=== PATIENT | female | born 1980 | race Caucasian/White ===

== ENCOUNTER 2019-03-16 08:23 | Outpatient (CLI) | payer BC, OTHER | END 2019-03-16 08:24 | disposition home or self-care (01) | LOC: LAB.WCP 08:23 | PROVIDERS: ATTEND Family Medicine | DX: R53.83 Other fatigue (principal) | CPT/HCPCS: 36415; 84443 ==

== ENCOUNTER 2020-09-07 07:10 | Day surgery (SDC) | payer OTHER ==
[2020-09-07] MEDS ORDERED: LACTATED RINGERS 1,000 ML IV ONE ×2 (07:35→09:40)
[2020-09-07 07:38] LABS: HCG UR QUAL NEGATIVE
[2020-09-07] MEDS ORDERED: fentaNYL 250 MCG/5 ML VIAL IVP ONE (09:06)
[2020-09-07] MEDS ORDERED: MIDAZOLAM 2 MG/2 ML VIAL IVP ONE (09:06)
[2020-09-07 10:07] VITALS: BP 116/76
== END 2020-09-07 07:11 | disposition home or self-care (01) ==
LOC: SDS 07:10
PROVIDERS: ATTEND Surgery
DX: Z12.11 Encounter for screening for malignant neoplasm of colon (principal); K57.30 Diverticulosis of large intestine without perforation or abscess without bleeding; Z83.71 Family history of colonic polyps; I10 Essential (primary) hypertension; K21.9 Gastro-esophageal reflux disease without esophagitis
CPT/HCPCS: 45378; 81025; J7120

== ENCOUNTER 2020-09-14 07:00 | Outpatient (CLI) | payer OTHER | END 2020-09-14 23:59 | disposition home or self-care (01) | LOC: LAB.R 07:00 | PROVIDERS: ATTEND Family Medicine | DX: R20.0 Anesthesia of skin (principal); Z20.828 Contact with and (suspected) exposure to other viral communicable diseases | CPT/HCPCS: 36415; 80053; 82607; 84443; 84703; 85025; 87086 ==

== ENCOUNTER 2020-09-14 09:18 | Outpatient (CLI) | payer OTHER ==
[2020-09-14 13:18] LABS: BASOPHILS # (AUTO) 0.1 10^3/uL (0.0-0.1); BASOPHILS % (AUTO) 1.1 %; EOSINOPHILS # (AUTO) 0.1 10^3/uL (0.0-0.7); EOSINOPHILS % (AUTO) 1.1 %; HGB - HEMOGLOBIN 14.1 g/dL (12.0-16.0); LYMPHOCYTES # (AUTO) 2.4 10^3/uL (1.5-3.5); LYMPHOCYTES % (AUTO) 28.2 %; MEAN CORPUSCULAR HEMOGLOBIN 30.9 pg (27.0-31.0); MEAN CORPUSCULAR HGB CONC 33.8 g/dL (32.0-36.0); MEAN CORPUSCULAR VOLUME 91.2 fL (81.0-99.0); MEAN PLATELET VOLUME 9.8 fL (7.9-10.8); MONOCYTES # (AUTO) 0.6 10^3/uL (0.0-1.0); NEUTROPHILS # (AUTO) 5.2 10^3/uL (1.5-6.6); NEUTROPHILS % (AUTO) 62.1 %; PLT - PLATELET COUNT 322 10^3/uL (130-450); RED BLOOD COUNT 4.57 10^6/uL (4.20-5.40); RED CELL DISTRIBUTION WIDTH 12.5 % (12.0-15.0); WHITE BLOOD COUNT 8.4 x10^3/uL (4.8-10.8)
[2020-09-14 13:54] LABS: ALBUMIN 4.4 g/dL (3.2-5.5); ALBUMIN/GLOBULIN RATIO 1.3 (1.0-2.2); BILIRUBIN,TOTAL 0.5 mg/dL (0.2-1.0); CALCIUM 9.6 mg/dL (8.5-10.3); CREATININE 0.6 mg/dL (0.4-1.0); TOTAL PROTEIN 7.7 g/dL (6.7-8.2)
[2020-09-14 14:52] LABS: HCG,QUALITATIVE BLOOD NEGATIVE
== END 2020-09-14 09:19 | disposition home or self-care (01) ==
LOC: LAB.WCP 09:18
PROVIDERS: ATTEND Family Medicine
DX: R20.0 Anesthesia of skin (principal); Z20.828 Contact with and (suspected) exposure to other viral communicable diseases
CPT/HCPCS: 36415; 80053; 82607; 84443; 84703; 85025

== ENCOUNTER 2020-09-21 07:18 | Outpatient (CLI) | payer OTHER ==
[2020-09-21] MEDS ORDERED: GADOBUTROL 10 MMOL/10 ML VIAL ONE (08:18)
[2020-09-21] MEDS ORDERED: GADOBUTROL 10 MMOL/10 ML VIAL IVP ONE (08:25)
--- NOTE | 2020-09-21 09:34 | MRI Report ---
PROCEDURE: Brain W/WO INDICATIONS: NUMBNESS OF FACE CONTRAST: IV CONTRAST: Gadavist ml: 9 TECHNIQUE: Noncontrast axial T1 spin echo, axial T2 fast spin echo, sagittal and axial FLAIR, coronal T2 fast sp in echo, axial gradient echo, axial diffusion and ADC through the brain. After the administration of contrast, axial and coronal T1 spin echo with fat saturation through the brain. COMPARISON: None. FINDINGS: Image quality: Excellent. CSF spaces: Basal cisterns are patent. No extra-axial fluid collections. Ventricles are normal in size and shape. Brain: An approximately 1 cm mass in the periventricular right frontal lobe demonstrates heterogeneou s T1/T2 signal intensity, peripheral susceptibility artifact consistent with hemosiderin deposition, and stippled internal enhancement. There are two small adjacent developmental venous anomalies. No as sociated mass effect or midline shift. No adjacent vasogenic edema. No restricted diffusion to indica te recent ischemia. The major intracranial vascular flow related signal voids are maintained. No abno rmal enhancement otherwise. Skull and face: Calvarial marrow is normal in signal. Orbits appear normal. Sinuses: Sinuses and mastoids appear clear. 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 These findings are of doubtful clinical significance al though theoretically could account for the patient's symptoms. Reviewed by: Jeremiah Duran MD on 09/21/2020 9:33 AM PST Approved by: Jeremiah Duran MD on 09/21/2020 9:33 AM PST Station ID: [id number]
== END 2020-09-21 07:19 | disposition home or self-care (01) ==
LOC: DI 07:18
PROVIDERS: ATTEND Family Medicine
DX: R20.0 Anesthesia of skin (principal)
CPT/HCPCS: 70553; A9585

== ENCOUNTER 2020-10-25 07:58 | Outpatient (CLI) | payer OTHER ==
[2020-10-25 09:24] LABS: BASOPHILS # (AUTO) 0.1 10^3/uL (0.0-0.1); BASOPHILS % (AUTO) 1.3 %; EOSINOPHILS # (AUTO) 0.1 10^3/uL (0.0-0.7); EOSINOPHILS % (AUTO) 1.3 %; HGB - HEMOGLOBIN 14.2 g/dL (12.0-16.0); LYMPHOCYTES # (AUTO) 2.3 10^3/uL (1.5-3.5); LYMPHOCYTES % (AUTO) 31.2 %; MEAN CORPUSCULAR HGB CONC 33.2 g/dL (32.0-36.0); MEAN CORPUSCULAR VOLUME 93.4 fL (81.0-99.0); MEAN PLATELET VOLUME 9.8 fL (7.9-10.8); MONOCYTES # (AUTO) 0.6 10^3/uL (0.0-1.0); MONOCYTES % (AUTO) 7.6 %; NEUTROPHILS # (AUTO) 4.4 10^3/uL (1.5-6.6); NEUTROPHILS % (AUTO) 58.3 %; PLT - PLATELET COUNT 315 10^3/uL (130-450); RED BLOOD COUNT 4.58 10^6/uL (4.20-5.40); RED CELL DISTRIBUTION WIDTH 12.6 % (12.0-15.0); WHITE BLOOD COUNT 7.5 x10^3/uL (4.8-10.8)
[2020-10-25 09:49] LABS: ALBUMIN 4.6 g/dL (3.2-5.5); ALBUMIN/GLOBULIN RATIO 1.4 (1.0-2.2); ALKALINE PHOSPHATASE 52 IU/L (42-121); ALT ALANINE AMINOTRANSFERASE 34 IU/L (10-60); AST ASPARTATE AMINOTRANSFERASE 26 IU/L (10-42); BILIRUBIN,TOTAL 0.7 mg/dL (0.2-1.0); BUN - BLOOD UREA NITROGEN 14 mg/dL (6-20); CALCIUM 9.6 mg/dL (8.5-10.3); CARBON DIOXIDE - CO2 21 mmol/L (21-32); CHLORIDE 101 mmol/L (101-111); CHOL/HDL RATIO 3.4 (<4.4); CHOLESTEROL 177 mg/dL; CREATININE 0.6 mg/dL (0.4-1.0); GLUCOSE 123 mg/dL (70-100); HDL CHOLESTEROL 52 mg/dL; LDL CHOLESTEROL,CALCULATED 87 mg/dL; LDL/HDL RATIO 1.7 (<4.4); SODIUM 134 mmol/L (135-145); TOTAL PROTEIN 7.8 g/dL (6.7-8.2); VLDL CHOLESTEROL 38 mg/dL
[2020-10-28 14:17] LABS: ANA SCREEN NEGATIVE (NEGATIVE)
[2020-10-29 09:02] LABS: ALPHA-TOCOPHEROL 13.2 mg/L; BETA-GAMMA-TOCOPHEROL 1.3 mg/L (<4.4)
== END 2020-10-25 07:59 | disposition home or self-care (01) ==
LOC: LAB 07:58
PROVIDERS: ATTEND Internal Medicine
DX: Z00.00 Encounter for general adult medical examination without abnormal findings (principal); G62.9 Polyneuropathy, unspecified
CPT/HCPCS: 36415; 80053; 80061; 81599; 82525; 82595; 82607; 83721; 84155; 84165; 84207; 84443; 84446; 85025; 86038; 86334; 86592

== ENCOUNTER 2023-02-26 11:07 | Outpatient (CLI) | payer BC ==
--- NOTE | 2023-02-27 08:50 | Mammography Report ---
BILATERAL DIGITAL SCREENING MAMMOGRAM 3D/2D: 02/26/2023 CLINICAL: Family history of breast cancer. High risk screening. Baseline exam. Routine screening. No prior exams were available for comparison. Both breasts are heterogeneously dense, which may obscure small masses (category c / 51-75% glandular tissue). No significant masses, calcifications, or other findings are seen in either breast. IMPRESSION: NEGATIVE There is no mammographic evidence of malignancy. A 1 year screening mammogram is recommended. Based on the Tyrer Cuzick model (a risk assessment model) the patients lifetime risk is 19.1% and he r 10 year risk is 3.2%. According to the ACR, ACS, and NCCN guidelines, an annual breast MRI exam kranthi ng with mammogram is recommended if the patients lifetime risk is 20% or greater. This exam was interpreted at Station ID: [id number]. NOTE: For mammograms, a report in lay terms will be sent to the patient. Approximately 15% of breast malignancies will not be visualized mammographically. In the management of a palpable breast mass, a negative mammogram must not discourage biopsy of a clinically suspicious lesion. Electronically Signed By: Russell ribeiro/ilia:02/26/2023 13:19:48 letter sent: No_Letter ACR BI-RADS Category 1: Negative 3341F PARENCHYMAL PATTERN: (D) - The breast(s) demonstrate(s) heterogeneously dense fibroglandular parsalinasy daryl. BI-RADS CATEGORY: (1) - 1 Mammogram 20240227 1 year screening LATERALITY: (B)
== END 2023-02-26 11:08 | disposition home or self-care (01) ==
LOC: DI.N 11:07
DX: Z12.31 Encounter for screening mammogram for malignant neoplasm of breast (principal); Z80.3 Family history of malignant neoplasm of breast

== ENCOUNTER 2023-09-04 08:00 | Outpatient (CLI) | payer BC ==
[2023-09-04 12:07] LABS: BILIRUBIN,URINE NEGATIVE (NEGATIVE); GLUCOSE, URINE (UA) >=1000 mg/dL (NEGATIVE); KETONES,URINE (UA) 15 mg/dL (NEGATIVE); LEUKOCYTE ESTERASE, URINE NEGATIVE (NEGATIVE); NITRITE,URINE NEGATIVE (NEGATIVE); OCCULT BLOOD,URINE TRACE-INTA (NEGATIVE); PROTEIN,URINE NEGATIVE (NEGATIVE); UROBILINOGEN,URINE 0.2 (NORMAL) E.U./dL (NORMAL)
[2023-09-04 13:11] LABS: CLARITY,URINE CLOUDY (CLEAR)
[2023-09-04 13:16] LABS: AMORPHOUS SEDIMENT,UR Marked /LPF; RBC,URINE 0-5 /HPF (0-5); SQUAMOUS EPITHELIAL CELL,UR MANY Squamous (<= Few)
[2023-09-04 13:17] LABS: WBC,URINE 0-3 /HPF (0-5)
== END 2023-09-04 23:59 | disposition home or self-care (01) ==
LOC: LAB.R 08:00
PROVIDERS: ATTEND Physician Assistant
DX: R10.2 Pelvic and perineal pain (principal)
CPT/HCPCS: 81001; 87086

== ENCOUNTER 2023-09-24 09:22 | Outpatient (CLI) | payer BC ==
[2023-09-24 12:23] LABS: BASOPHILS # (AUTO) 0.1 10^3/uL (0.0-0.1); BASOPHILS % (AUTO) 1.2 %; EOSINOPHILS # (AUTO) 0.1 10^3/uL (0.0-0.7); EOSINOPHILS % (AUTO) 0.9 %; HGB - HEMOGLOBIN 14.3 g/dL (12.0-16.0); LYMPHOCYTES # (AUTO) 2.9 10^3/uL (1.5-3.5); LYMPHOCYTES % (AUTO) 32.3 %; MEAN CORPUSCULAR VOLUME 90.9 fL (81.0-99.0); MEAN PLATELET VOLUME 9.6 fL (7.9-10.8); MONOCYTES # (AUTO) 0.7 10^3/uL (0.0-1.0); MONOCYTES % (AUTO) 7.4 %; NEUTROPHILS # (AUTO) 5.2 10^3/uL (1.5-6.6); NEUTROPHILS % (AUTO) 57.8 %; PLT - PLATELET COUNT 284 10^3/uL (130-450); RED BLOOD COUNT 4.62 10^6/uL (4.20-5.40); RED CELL DISTRIBUTION WIDTH 12.2 % (12.0-15.0)
[2023-09-24 12:41] LABS: THYROID STIMULATING HORMONE 1.01 uIU/mL (0.34-5.60)
[2023-09-24 12:54] LABS: ALBUMIN 4.6 g/dL (3.2-5.5); ALBUMIN/GLOBULIN RATIO 1.5 (1.0-2.2); ALKALINE PHOSPHATASE 48 IU/L (42-121); ALT ALANINE AMINOTRANSFERASE 40 IU/L (10-60); AST ASPARTATE AMINOTRANSFERASE 24 IU/L (10-42); BILIRUBIN,TOTAL 0.5 mg/dL (0.2-1.0); BUN - BLOOD UREA NITROGEN 10 mg/dL (6-20); CALCIUM 9.5 mg/dL (8.5-10.3); CARBON DIOXIDE - CO2 26 mmol/L (21-32); CHLORIDE 100 mmol/L (101-111); CHOL/HDL RATIO 3.8 (<4.4); CHOLESTEROL 177 mg/dL; CREATININE 0.6 mg/dL (0.6-1.3); GFR - MDRD 109 (>89); GLUCOSE 210 mg/dL (74-104); HDL CHOLESTEROL 46 mg/dL; LDL CHOLESTEROL,CALCULATED 52 mg/dL; LDL/HDL RATIO 1.1 (<4.4); POTASSIUM 3.8 mmol/L (3.5-4.5); SODIUM 134 mmol/L (135-145); TOTAL PROTEIN 7.6 g/dL (6.4-8.9); TRIGLYCERIDES 397 mg/dL (48-352); VLDL CHOLESTEROL 79 mg/dL
[2023-09-26 12:31] LABS: ESTIMATED AVERAGE GLUCOSE 189 mg/dL (70-100); HEMOGLOBIN A1c% 8.2 % (4.27-6.07)
== END 2023-09-24 09:23 | disposition home or self-care (01) ==
LOC: LAB.N 09:22
PROVIDERS: ATTEND Physician Assistant
DX: I10 Essential (primary) hypertension (principal); R73.9 Hyperglycemia, unspecified
CPT/HCPCS: 36415; 80053; 80061; 81001; 81003; 83036; 83721; 84443; 85025; 87086

== ENCOUNTER 2023-09-26 11:47 | Outpatient (CLI) | payer BC ==
--- NOTE | 2023-09-26 14:33 | Ultrasound Report ---
PROCEDURE: Bladder INDICATIONS: LOWER ABD PAIN, URINARY RETENTION TECHNIQUE: Real-time scanning was performed of the kidneys and bladder, with image documentation. COMPARISON: None FINDINGS: Bladder: Pre-void bladder volume is 181.5 mL. Post-void residual is 14.3 mL. Pre-void images demon strate no intraluminal masses or stones. On pre-void images, bilateral ureteral jets are noted with color Doppler interrogation. (Of note, ureteral jets may not be detectable in up to 25% of cases due to insufficient differences in specific gravity between ureteral and bladder urine). Miscellaneous: No free pelvic fluid. Incidental right adnexal cystic lesion measuring 11.7 x 6.6 x 8.5 cm. IMPRESSION: 1. Normal sonographic appearance of the bladder with no significant post void residual. 2. Incidental right adnexal cystic lesion measuring 11.7 x 6.6 x 8.5 cm. Attention on follow-up same day CT which has been ordered. Reviewed by: Trinidad Saab MD on 09/26/2023 2:32 PM PST Approved by: Trinidad Saab MD on 09/26/2023 2:32 PM PST Station ID: [id number]
[2023-09-26] MEDS ORDERED: iohexoL-300 100 ML VIAL IVP ONE (16:16)
[2023-09-26] MEDS ORDERED: DIATRIZOATE MEGLU/DIATRIZO SOD 30 ML BOTTLE PO ONE (16:16)
--- NOTE | 2023-09-27 09:09 | CT Report ---
PROCEDURE: ABDOMEN/PELVIS W INDICATIONS: LOWER ABD PAIN, URINARY RETENTION CONTRAST: 100ml omni 300 TECHNIQUE: After the administration of IV contrast, 5 mm thick sections acquired from the diaphragms to the symp hysis. 5 mm thick coronal and sagittal reformats were acquired. For radiation dose reduction, the f ollowing was used: automated exposure control, adjustment of mA and/or kV according to patient size. COMPARISON: Ultrasound abdomen, 09/26/2023. FINDINGS: Image quality: Excellent. Lung bases and heart: Unremarkable. Liver: Normal size. Moderate hepatic surface. No solid mass. Gallbladder and biliary tree: Surgically absent. Spleen: No splenomegaly. Pancreas: No pancreatic ductal dilation. Adrenals: No adrenal nodule. Kidneys and ureters: No hydronephrosis. No renal cystic lesion which requires follow up. No solid mas s. Bowel and peritoneum: No bowel distension. No pathologic free fluid. Lymph nodes: No central or retroperitoneal adenopathy. Vessels: No infrarenal aortic aneurysm. PELVIS Reproductive organs: There is a large cyst posterior to the urinary bladder, measuring 8.9 x 11.1 x 6 .7 cm, arising from the right ovary. Left ovary is unremarkable. Uterus is normal in size. There is a n IUD in uterus. No pathological free fluid in pelvis. Bladder: No abnormal wall thickening, accounting for underdistension. Pelvic lymph nodes: No pelvic adenopathy by size criteria. Bones: No aggressive osseous abnormality. Other: No significant ventral or inguinal hernia. IMPRESSION: 1. A large cystic mass arising from the right ovary posterior to the inferior bladder measuring 3.9 x 11.1 x 6.7 cm. Differential diagnoses are benign versus malignant ovarian cystic neoplasm (cystic or mucinous cystadenoma or cystadenocarcinoma). Recommend gynecological consultation. Reviewed by: Jm Mistry MD on 09/27/2023 9:07 AM [facility] Approved by: Jm Mistry MD on 09/27/2023 9:07 AM PST Station ID: [id number]
== END 2023-09-26 11:48 | disposition home or self-care (01) ==
LOC: DI 11:47
PROVIDERS: ATTEND Physician Assistant
DX: N83.201 Unspecified ovarian cyst, right side (principal); R33.9 Retention of urine, unspecified
CPT/HCPCS: 74177; 76857; Q9963; Q9967

== ENCOUNTER 2023-10-03 07:34 | Outpatient (CLI) | payer BC | END 2023-10-03 07:35 | disposition home or self-care (01) | LOC: LAB.N 07:34 | PROVIDERS: ATTEND Physician Assistant | DX: N83.9 Noninflammatory disorder of ovary, fallopian tube and broad ligament, unspecified (principal) | CPT/HCPCS: 36415; 82378; 86304 ==

== ENCOUNTER 2023-12-01 08:38 | Outpatient (CLI) | payer BC ==
[2023-12-01 08:57] LABS: BASOPHILS # (AUTO) 0.1 10^3/uL (0.0-0.1); BASOPHILS % (AUTO) 1.5 %; EOSINOPHILS # (AUTO) 0.1 10^3/uL (0.0-0.7); EOSINOPHILS % (AUTO) 0.9 %; HCT - HEMATOCRIT 41.3 % (37.0-47.0); LYMPHOCYTES # (AUTO) 3.3 10^3/uL (1.5-3.5); LYMPHOCYTES % (AUTO) 36.8 %; MEAN CORPUSCULAR HGB CONC 33.9 g/dL (32.0-36.0); MEAN CORPUSCULAR VOLUME 91.4 fL (81.0-99.0); MEAN PLATELET VOLUME 9.3 fL (7.9-10.8); MONOCYTES # (AUTO) 0.6 10^3/uL (0.0-1.0); MONOCYTES % (AUTO) 6.3 %; NEUTROPHILS # (AUTO) 4.9 10^3/uL (1.5-6.6); NEUTROPHILS % (AUTO) 54.1 %; PLT - PLATELET COUNT 255 10^3/uL (130-450); RED BLOOD COUNT 4.52 10^6/uL (4.20-5.40); RED CELL DISTRIBUTION WIDTH 12.4 % (12.0-15.0)
== END 2023-12-01 08:39 | disposition home or self-care (01) ==
LOC: LAB 08:38
PROVIDERS: ATTEND Obstetrics & Gynecology
DX: Z01.812 Encounter for preprocedural laboratory examination (principal); N83.201 Unspecified ovarian cyst, right side; E11.9 Type 2 diabetes mellitus without complications
CPT/HCPCS: 36415; 85025; 86850; 86900; 86901

== ENCOUNTER 2023-12-02 07:27 | Day surgery (SDC) | payer BC ==
[~2023-12-02 07:27] MED LIST: BUPIVACAINE 0.5% PF 10 ML VIAL ONE; LIDOCAINE 1%-EPI 1:100000 20 ML MDV ONE; METHYLENE BLUE 0.5% 50 MG/10 ML AMPULE ONE
[2023-12-02] MEDS ORDERED: LACTATED RINGERS 1,000 ML IV ONE ×3 (07:30→12:51)
[2023-12-02] MEDS ORDERED: fentaNYL 100 MCG/2 ML VIAL ONE (07:46)
[2023-12-02] MEDS ORDERED: PROPOFOL 200 MG/20 ML VIAL IVP ONE (07:46)
[2023-12-02] MEDS ORDERED: ROCURONIUM 50 MG/5 ML VIAL ONE ×2 (07:46→09:48)
[2023-12-02] MEDS ORDERED: MIDAZOLAM 2 MG/2 ML VIAL ONE (07:46)
--- NOTE | 2023-12-02 08:10 | ANESTHESIA ---
Pre-Anesthesia VS, & Labs - Diagnosis right ovarian cyst - Procedure laparoscopic ovarian cystectomy Vital Signs: Temp Pulse Resp BP Pulse Ox O2 Flow Rate 36.6 C 85 20 130/86 H 98 12/02/23 07:44 12/02/23 07:44 12/02/23 07:44 12/02/23 07:44 12/02/23 07:44 Height: 5 ft 5 in Weight (kg): 94.4 kg Body Mass Index: 34.6 BMI Classification: Obese - NPO >8 hours - Is Patient ?: No Home Medications and Allergies Home Medications: Ambulatory Orders ALPRAZolam [Alprazolam] 0.5 mg PO ONCE PRN 11/24/23 Cyanocobalamin (Vitamin B-12) [Vitamin B-12] 1,000 mcg PO DAILY 11/24/23 Magnesium Oxide 300 mg PO DAILY 11/24/23 Metoprolol Succinate [Toprol Xl] 25 mg PO DAILY 11/24/23 Pregabalin 50 mg PO TID PRN 11/24/23 metFORMIN [Glucophage] 500 mg PO BIDWM 11/24/23 Losartan Potassium 50 mg PO DAILY 09/07/20 hydroCHLOROthiazide [Hydrochlorothiazide] 12.5 mg PO DAILY 09/07/20 ALPRAZolam [Alprazolam] 0.5 mg PO ONCE PRN 11/24/23 Cyanocobalamin (Vitamin B-12) [Vitamin B-12] 1,000 mcg PO DAILY 11/24/23 Magnesium Oxide 300 mg PO DAILY 11/24/23 Metoprolol Succinate [Toprol Xl] 25 mg PO DAILY 11/24/23 Pregabalin 50 mg PO TID PRN 11/24/23 metFORMIN [Glucophage] 500 mg PO BIDWM 11/24/23 Allergies/Adverse Reactions: Allergies Allergy/AdvReac Type Severity Reaction Status Date / Time No Known Drug Allergies Allergy Verified 12/02/23 08:09 Anes History & Medical History - Anesthetic History Anesthesia Complications: reports: No previous complications, Slow wake-up (with nurse monitored sedation) - Medical History Cardiovascular: reports: Hypertension, Arrhythmia Pulmonary: reports: None Gastrointestinal: reports: None Urinary: reports: Kidney stones Musculoskeletal: reports: None Endocrine/Autoimmune: reports: Type 2 diabetes Skin: reports: None History of Cancer?: No - Surgical History General: reports: Cholecystectomy, Colonoscopy Exam General: Alert, Oriented x3, Cooperative Dental: WNL Mouth Opening: Greater than 4 Fingerbreadths Neck Mobility: Normal Mallampati classification: II Thyromental Distance: greater than 6 cm Respiratory: Lungs clear Cardiovascular: Regular rate Plan Anesthesia Type: General Consent for Procedure(s) Verified and Reviewed: Yes Code Status: Attempt Resuscitation ASA classification: 2-Mild systemic disease Is this case an emergency?: No
[2023-12-02 08:26] LABS: HCG UR QUAL NEGATIVE
[2023-12-02] MEDS ORDERED: ONDANSETRON 4 MG/2 ML VIAL IVP PRN (08:35)
[2023-12-02] MEDS ORDERED: ATROPINE ABBOJECT 1 MG/10 ML SYRINGE IVP PRN (08:35)
[2023-12-02] MEDS ORDERED: MORPHINE 2 MG/ML CARPUJECT IVP PRN (08:35)
[2023-12-02] MEDS ORDERED: NALOXONE 0.4 MG/ML VIAL IVP PRN (08:35)
[2023-12-02] MEDS ORDERED: fentaNYL 100 MCG/2 ML VIAL IVP PRN (08:35)
[2023-12-02] MEDS ORDERED: METOCLOPRAMIDE 10 MG/2 ML VIAL IVP PRN (08:35)
[2023-12-02] MEDS ORDERED: ePHEDrine 50 MG/ML VIAL IVP PRN (08:35)
[2023-12-02] MEDS ORDERED: ACETAMINOPHEN 1,000 MG/100 ML 1,000 MG/100 ML BAG IV ONE (08:56)
[2023-12-02] MEDS ORDERED: ONDANSETRON 4 MG/2 ML VIAL ONE ×2 (08:56→12:41)
[2023-12-02] MEDS ORDERED: DEXAMETHASONE 4 MG/ML VIAL ONE (08:56)
[2023-12-02] MEDS ORDERED: LACTATED RINGERS 1,000 ML IV SCH (09:00)
[2023-12-02] MEDS ORDERED: BUPIVACAINE 0.5% PF 30 ML VIAL SUBQ ONE (09:32)
[2023-12-02] MEDS ORDERED: SEVOFLURANE 250 ML LIQUID INH ONE (09:48)
[2023-12-02] MEDS ORDERED: SUGAMMADEX 200 MG/2 ML VIAL IVP ONE (11:04)
[2023-12-02] MEDS ORDERED: KETOROLAC 30 MG/ML VIAL ONE (11:05)
[2023-12-02] MEDS ORDERED: oxyCODONE 5 MG TABLET PO PRN (11:25)
--- NOTE | 2023-12-02 11:30 | OPERATIVE REPORT ---
Operative Report - General Planned Procedure: Laparoscopic right ovarian cystectomy versus oophorectomy Pre-Op Diagnosis: Right ovarian cyst, pelvic pain Procedure Performed: Laparoscopic right salpingo-oophorectomy Post Op Diagnosis: Right ovarian cyst, right hydrosalpinx, left ovarian cyst - Procedure Note Primary Surgeon: Gabe Wilkerson MD Secondary Surgeon: BREANN Grajeda Anesthesia Provider: Annette Le CRNA Anesthesia Technique: General LMA Pathology: Pelvic washings for cytology Right fallopian tube and ovary IV Fluids (mL): 1,700 Estimated Blood Loss (mL): 200 Urine Output (mL): 300 Findings: Large right ovarian cyst, appears to disrupt most of ovarian tissue. Edematous right fallopian tube. Small left ovarian cyst. Normal appearing liver and gallbladder. Complications: None - Other Other Information/Narrative: Prior to surgery, we discussed the risks, alternatives, benefits to surgery. We discussed cystectomy versus oophorectomy. Patient was taken to the OR and placed in the dorsal lithotomy position using Yellofin stirrups after adequate anesthesia was obtained. Patient was prepped and draped in the usual fashion. A bivalve speculum was used to visualize the cervix and a uterine manipulator was placed. 2 mL of 0.5% Marcaine was used below the umbilicus. An 11 blade scalpel was used to incise the skin. Direct visual entry was used to place the infraumbilical trocar. Upon entering the peritoneal cavity, low flow was used to ensure appropriate positioning. Upon visualization of the abdominal cavity, high flow was then initiated. 2 additional trocars was placed under visualization in a similar fashion in the right and left lower quadrants. We asked for Trendelenburg position and removed the omentum and bowel from the pelvis. The uterus was elevated, and a cyst was seen in the left ovary obscuring the view, and this was moved out of the way and allowed visualization of the right ovarian cyst taken at much of the posterior cul-de-sac and low pelvis. This was gradually elevated out of the pelvis and set on top of the uterus. We did take pelvic washings and sent for cytology. Visualization of the tubes showed it was edematous, likely a hydrosalpinx Using laparoscopic giorgi, the serosal edge was incised and dissected it with combination of sharp and blunt dissection. Due to the size of the cyst, a fourth port was added on her left side. Using these we dissected the cyst approximately shelter when the cyst inadvertently ruptured. Using the suction catering service manager device, we drained the cyst cavity and attempted to peel the cyst from the underlying tissue. As we did this, it became apparent there was very little tissue left and was strongly adherent. Decision made to do an salpingo- oophorectomy removing the hydrosalpinx and ovarian tissue. The cyst was elevated and the course of the ureter was visualized. The right IP ligament was away from the ureter and was clamped, cauterized and transected using LigaSure device. This was carried up the mesosalpinx to the cornea where the utero- ovarian ligament was transected and cut. This was carried up through the cornea where the tube was also cauterized and cut. We then extended the left lower quadrant port to 10 mm and inserted in the trocar for an Endo Catch bag. It was inserted into the abdomen and deployed. The specimen was placed in the bag and drawn to the skin. This was grasped with Cogar and gradually removed from the sac through the opening. We then examined for hemostasis and after this was verified, closed the 10 mm defect with a Desean-Deon device. The trocars were then removed, and abdomen was evacuated of gas. The trocar sites were then closed with a 4-0 Monocryl in a sub-cuticular fashion and covered with Dermabond. Patient was taken to the PACU in stable condition. I appreciate the assistance of BREANN Grajeda during this procedure, and the assistance in retraction, visualization, dissection, and overall assistance during the case were instrumental to the patient's wellbeing.
[2023-12-02] MEDS ORDERED: HYDROmorphone 1 MG/ML CARPUJECT ONE (11:57)
[2023-12-02] MEDS: HYDROmorphone 0.5 MG/0.5 ML SYRINGE IVP PRN ×2 (12:13→12:24)
[2023-12-02] MEDS ORDERED: HYDROmorphone 0.5 MG/0.5 ML SYRINGE ONE ×2 (12:22→12:35)
[2023-12-02] MEDS ORDERED: HYDROcod/ACETAM 10 MG/325 MG TABLET PO PRN (12:52)
[2023-12-02] MEDS ORDERED: oxyCODONE 5 MG TABLET ONE (13:37)
--- NOTE | 2023-12-02 13:57 | ANESTHESIA POST OP EVALUATION ---
Anesthesia Post Eval - Post Anesthesia Eval Vitals: Last Vital Signs Temp 36.3 C L 12/02/23 13:35 Pulse 93 12/02/23 13:35 Resp 16 12/02/23 13:35 BP 122/76 12/02/23 13:35 Pulse Ox 93 12/02/23 13:35 O2 Flow Rate CV Function Including HR & BP: Stable Pain Control: Satisfactory Nausea & Vomiting: Negative Mental Status: Baseline Respiratory Status: Airway Patent Hydration Status: Satisfactory Anesthesia Complications: None
[2023-12-02 14:31] VITALS: BP 118/73; O2SAT 94
== END 2023-12-02 07:28 | disposition home or self-care (01) ==
LOC: SDS 07:27
PROVIDERS: ATTEND Obstetrics & Gynecology
PROC: 0UB04ZZ Excision of Right Ovary, Percutaneous Endoscopic Approach (ICD-10-PCS; 2023-12-02)
PROC: 0UT54ZZ Resection of Right Fallopian Tube, Percutaneous Endoscopic Approach (ICD-10-PCS; principal; 2023-12-02 08:30)
DX: N83.201 Unspecified ovarian cyst, right side (principal); N83.202 Unspecified ovarian cyst, left side; N70.11 Chronic salpingitis; D27.0 Benign neoplasm of right ovary; E11.9 Type 2 diabetes mellitus without complications; Z79.84 Long term (current) use of oral hypoglycemic drugs; E66.9 Obesity, unspecified; Z68.34 Body mass index [BMI] 34.0-34.9, adult
CPT/HCPCS: 58661; 81025; A9270; J0131; J1170; J3490; J7120; 36415; 85025; 86850; 86900; 86901

== ENCOUNTER 2024-02-16 08:16 | Outpatient (CLI) | payer BC ==
--- NOTE | 2024-02-16 09:34 | Ultrasound Report ---
PROCEDURE: Pelvic w/Transvaginal INDICATIONS: OVARIAN CYST TECHNIQUE: Real-time scanning was performed of the pelvic organs, with image documentation. Additional endovagi nal scanning was necessary due to incomplete visualization of the adnexal and endometrial structures by transabdominal scanning. COMPARISON: CT abdomen and pelvis on September 26, 2023. FINDINGS: Uterus: Uterus is retroverted and normal in size at 7.6 x 4.8 x 5.7 cm. The myometrium is heterogen eous with coarse calcifications. The endometrium measures 4 mm in combined thickness. IUD is approp riately positioned. Cervix and vagina are within normal limits. Ovaries: Right oophorectomy. The left ovary measures 4.7 x 2.9 x 3.3 cm, with a calculated ovarian vo lume of 23.4 cc. The left ovary has a normal sonographic appearance. There is a simple cyst versus a dominant follicle measuring 2.3 x 1.9 x 1.6 cm. Less than 12 follicles can be seen in each ovary. No adnexal masses are seen. No cystic lesions measuring greater than 3 cm. Other: No pathologic free abdominal or pelvic fluid. IMPRESSION: 1.Endometrial thickness is 4 mm. Myometrium is heterogeneous with coarse calcifications. 2.IUD is appropriately positioned. 3.Left ovarian dominant follicle versus simple cyst measuring 2.3 x 1.9 x 1.6 cm. Per SRU guidelines, based on size, no dedicated follow-up needed. 4.Right oophorectomy. Reviewed by: Trinidad Saab MD on 02/16/2024 9:32 AM PDT Approved by: Trinidad Saab MD on 02/16/2024 9:32 AM PDT Station ID: [id number]
== END 2024-02-16 08:17 | disposition home or self-care (01) ==
LOC: DI 08:16
PROVIDERS: ATTEND Physician Assistant Medical
DX: N83.292 Other ovarian cyst, left side (principal); Z97.5 Presence of (intrauterine) contraceptive device; Z90.721 Acquired absence of ovaries, unilateral

== ENCOUNTER 2024-03-28 12:57 | Outpatient (CLI) | payer BC ==
[2024-03-28 13:21] LABS: ALBUMIN 4.7 g/dL (3.2-5.5); ALBUMIN/GLOBULIN RATIO 1.5 (1.0-2.2); ALKALINE PHOSPHATASE 54 IU/L (42-121); ALT ALANINE AMINOTRANSFERASE 45 IU/L (10-60); AST ASPARTATE AMINOTRANSFERASE 31 IU/L (10-42); BILIRUBIN,TOTAL 0.5 mg/dL (0.2-1.0); BUN - BLOOD UREA NITROGEN 10 mg/dL (6-20); CALCIUM 10.3 mg/dL (8.5-10.3); CARBON DIOXIDE - CO2 25 mmol/L (21-32); CHLORIDE 102 mmol/L (101-111); CHOLESTEROL 146 mg/dL; CREATININE 0.6 mg/dL (0.6-1.3); GFR - MDRD 109 (>89); GLUCOSE 177 mg/dL (74-104); HDL CHOLESTEROL 48 mg/dL; LDL CHOLESTEROL,CALCULATED 48 mg/dL; POTASSIUM 3.7 mmol/L (3.5-4.5); SODIUM 135 mmol/L (135-145); TOTAL PROTEIN 7.9 g/dL (6.4-8.9); TRIGLYCERIDES 250 mg/dL (48-352); VLDL CHOLESTEROL 50 mg/dL
[2024-03-29 10:00] LABS: ESTIMATED AVERAGE GLUCOSE 180 mg/dL (70-100); HEMOGLOBIN A1c% 7.9 % (4.27-6.07)
== END 2024-03-28 12:58 | disposition home or self-care (01) ==
LOC: LAB 12:57
PROVIDERS: ATTEND Physician Assistant Medical
DX: E11.65 Type 2 diabetes mellitus with hyperglycemia (principal)
CPT/HCPCS: 36415; 80053; 80061; 83036; 83721

== ENCOUNTER 2024-07-20 15:16 | Outpatient (CLI) | payer BC ==
[2024-07-20 18:25] LABS: ALBUMIN 4.5 g/dL (3.2-5.5); BILIRUBIN,TOTAL 0.3 mg/dL (0.2-1.0); CALCIUM 9.3 mg/dL (8.5-10.3); CARBON DIOXIDE - CO2 31 mmol/L (21-32); CHLORIDE 99 mmol/L (101-111); POTASSIUM 3.5 mmol/L (3.5-4.5); SODIUM 136 mmol/L (135-145)
[2024-07-20 18:30] LABS: ALBUMIN/GLOBULIN RATIO 1.6 (1.0-2.2); ALKALINE PHOSPHATASE 45 IU/L (42-121); ALT ALANINE AMINOTRANSFERASE 15 IU/L (10-60); AST ASPARTATE AMINOTRANSFERASE 15 IU/L (10-42); BUN - BLOOD UREA NITROGEN 9 mg/dL (6-20); CHOL/HDL RATIO 3.1 (<4.4); CHOLESTEROL 145 mg/dL; CREATININE 0.6 mg/dL (0.6-1.3); GFR - MDRD 108 (>89); GLUCOSE 98 mg/dL (74-104); HDL CHOLESTEROL 47 mg/dL; LDL CHOLESTEROL,CALCULATED 50 mg/dL; LDL/HDL RATIO 1.1 (<4.4); TOTAL PROTEIN 7.3 g/dL (6.4-8.9); TRIGLYCERIDES 241 mg/dL; VLDL CHOLESTEROL 48 mg/dL
[2024-07-20 21:27] LABS: ESTIMATED AVERAGE GLUCOSE 128 mg/dL (70-100); HEMOGLOBIN A1c% 6.1 % (4.27-6.07)
== END 2024-07-20 15:17 | disposition home or self-care (01) ==
LOC: LAB.N 15:16
PROVIDERS: ATTEND Physician Assistant Medical
DX: E11.65 Type 2 diabetes mellitus with hyperglycemia (principal)
CPT/HCPCS: 36415; 80053; 80061; 83036; 83721